=== PATIENT | male | born 1965 | race Caucasian/White ===

== ENCOUNTER 2017-09-03 13:59 | Outpatient (CLI) | payer BC ==
[2017-09-03 14:58] LABS: ALT (SGPT) 28 U/L (8-55); AST (SGOT) 19 U/L (5-34); Alkaline Phosphatase 75 U/L (40-150); Anion Gap 14 mmol/L (10-20); BUN (Urea Nitrogen) 26 mg/dL (8.4-25.7); Bilirubin, Total 1.1 mg/dL (0.2-1.2); Calc. Creatinine Clearance 0 mL/min (70-130); Calcium 9.6 mg/dL (7.8-10.44); Carbon Dioxide 27 mmol/L (22-29); Chloride 105 mmol/L (98-107); Cholesterol 238 mg/dl (< 200 Desired); Estimated GFR-MDRD 53; Globulin 2.9 g/dL (2.4-3.5); Glucose 95 mg/dL (70-105); HDL Cholesterol 60 mg/dL (>60 Neg Risk); LDL Cholesterol, Calculated 159 mg/dL; Potassium 4.8 mmol/L (3.5-5.1); Protein, Total 6.9 g/dL (6.0-8.3); Sodium 141 mmol/L (136-145); Triglycerides 97 mg/dL (Less than 150)
[2017-09-03 15:20] LABS: Band 1 % (5-11); Eosinophils 2 % (0-10); Hemoglobin 15.2 g/dL (14.0-18.0); Lymphocytes 20 % (21-51); MDiff Complete? YES; Mean Corpuscular Hemoglobin 28.5 pg (27.0-31.0); Mean Corpuscular Volume 86.3 fl (80.0-94.0); Mean Platelet Volume 6.6 fL (7.4-10.4); Monocytes 5 % (0-10); Neutrophil 72 % (42-75); PLT Morphology Comment Appears Adequate; Platelet Count 228 thou/uL (130-400); RBC Distribution Width 11.3 % (11.5-14.5); Red Blood Cell (RBC) Count 5.35 mill/uL (4.70-6.10); White Blood Cell (WBC) Count 7.1 thou/uL (4.8-10.8)
[2017-09-04 01:06] LABS: HBSAB Concentration 0.45 mIU/mL; HBSAg Index 0.18 S/CO (0-0.99); HIV (1/2) Antibody/Antigen Non-Reactive (NonReactive); HIV 1/2 INDEX 0.09 S/CO (<1.00); Hep B Core Total Ab Non-Reactive (NonReactive); Hep B Surf AB Non-Reactive (NonReactive); Hep B Surf Ag Non-Reactive S/CO (NonReactive); PSA-Asymptomatic (SCREENING) 1.16 ng/mL (0-4.0)
== END 2017-09-03 14:00 ==
LOC: MADLABBHPM 13:59
PROVIDERS: ATTEND Family Medicine
DX: Z12.5 Encounter for screening for malignant neoplasm of prostate (principal); Z00.00 Encounter for general adult medical examination without abnormal findings; R00.1 Bradycardia, unspecified
CPT/HCPCS: 36415; 80053; 80061; 85025; 86704; 86706; 87340; 87389; 93005; 93010; G0103

== ENCOUNTER 2019-09-15 14:42 | Outpatient (CLI) | payer BC ==
--- NOTE | 2019-09-15 15:49 | ULT ---
Exam: Testicular ultrasound HISTORY: Scrotal mass. Left-sided mass. COMPARISON: None TECHNIQUE: Sagittal and transverse imaging of the left and right hemiscrotum are performed. Testicula r Doppler is performed with grayscale, color-flow, Doppler imaging and spectral waveform analysis. FINDINGS: Right hemiscrotum: Testicle: Homogeneous echotexture. No intratesticular masses. Right testicle measurements: 3.5 x 2.1 x 3.0 Right epididymis: Normal echotexture. Small 0.7 x 0.2 cm epididymal cyst Right epididymis measurements: 1.1 x 0.9 cm Hydrocele: None Left hemiscrotum: Left testicle: Homogeneous echotexture. No intratesticular masses. Left testicle measurements: 1.7 x 2.9 x 3.0 cm Left epididymis: Normal echotexture. Left epididymis measurements:1.1 x 1.1 cm Hydrocele: Large hydrocele measuring 2.5 x 3.8 x 3.8 cm. There appear to be a few septations. Testicular Doppler: There is symmetric vascular flow to the left and right testicle. IMPRESSION: 1. No testicular masses. 2. Incidental right epididymal cyst 3. Large fluid collection in the left hemiscrotum which may represent a hydrocele. There appear to be a few septations.
== END 2019-09-15 14:43 | disposition home or self-care (01) ==
LOC: MADRAD 14:42
PROVIDERS: ATTEND Family Medicine
DX: N50.89 Other specified disorders of the male genital organs (principal); N50.3 Cyst of epididymis
CPT/HCPCS: 76870; 93976

== ENCOUNTER 2020-01-22 12:52 | Outpatient (CLI) | payer BC ==
--- NOTE | 2020-01-22 14:58 | ULT ---
Scrotal ultrasound: 01/22/2020 COMPARISON:09/15/2019 HISTORY:Reevaluate left-sided hydrocele/spermatocele TECHNIQUE: Multiplanar grayscale sonographic imaging of thescrotal contents obtained. The testicles a re assessed with Doppler interrogation including color flow and spectral analysis FINDINGS:The left testicle measures 3.6 x 4.3 x 2.1 cm. The right testicle measures 3.3 x 4.0 x 2.0 c m. The testicles demonstrate normal blood flow. There is a complex cystic lesion superior to the left testicle measuring 4.4 x 2.8 x 4.8 cm abutting the superior aspect of the left epididymal head. This complex cystic lesion superior to the left epididymal head/testicle measured 4.0 x 1.8 x 4.1 cm on the prior exam. No intratesticular mass. Normal blood flow documented within the testicles. Right epididymal head measures 1.5 x 0.9 cm. Trace right hydrocele. IMPRESSION: Large complex cystic lesion superior to the left testicle abutting the superior aspect of the left epididymis, which appears to have grown since the prior examination. This could represent a complex hydrocele or spermatocele.
--- NOTE | 2020-01-22 15:57 | ULT ---
RENAL ULTRASOUND: 01/22/20 INDICATIONS: History of stones and hydrocele. FINDINGS: Right kidney measures 11 cm in length. There are two right parapelvic cysts with larger measuring up to 2 cm. Lateral cyst measuring 1.2 cm. No hydronephrosis. Left kidney measures 10.6 cm in length. There is a left parapelvic cyst measuring 3 to 4 cm. An adjacent parapelvic cyst measures 2 cm. An inferior pole cyst measures 1.5 cm. Urinary bladder is mildly distended and unremarkable. IMPRESSION: Bilateral renal cystic lesions as described. POS: [facility]
== END 2020-01-22 12:53 | disposition home or self-care (01) ==
LOC: MADULT 12:52
PROVIDERS: ATTEND Urology
DX: N43.3 Hydrocele, unspecified (principal); N43.40 Spermatocele of epididymis, unspecified; N28.9 Disorder of kidney and ureter, unspecified; N50.89 Other specified disorders of the male genital organs
CPT/HCPCS: 76770; 76870; 93976